=== PATIENT | female | born 1945 | race Two or more races ===

== ENCOUNTER 2024-07-01 10:54 | Outpatient (CLI) | payer OTHER ==
[~2024-07-01 10:54] MED LIST: BISOPROLOL FUMAR5 MG PO; COZAAR100 MG PO; METHOCARBAMOL500 MG PO; ZETIA10 MG PO; ZOCOR20 MG PO
== END 2024-07-01 10:58 | disposition home or self-care (01) ==
LOC: RAD 10:54
PROVIDERS: ATTEND Ophthalmology
DX: Z01.811 Encounter for preprocedural respiratory examination (principal)

== ENCOUNTER 2024-07-01 11:30 | Outpatient (CLI) | payer OTHER | END 2024-07-01 11:39 | disposition home or self-care (01) | LOC: EKG 11:30 | PROVIDERS: ATTEND Ophthalmology | DX: I10 Essential (primary) hypertension (principal) ==

== ENCOUNTER 2025-11-01 11:10 | Outpatient (CLI) | payer OTHER | END 2025-11-01 11:16 | disposition home or self-care (01) | LOC: TOM 11:10 | DX: G44.309 Post-traumatic headache, unspecified, not intractable (principal) ==